=== PATIENT | male | born 2000 | race Two or more races ===

== ENCOUNTER → 2023-04-25 11:04 | Outpatient (CLI) | payer SELFPAY ==
--- NOTE | 2023-04-25 11:40 | ECG_ITS ---
APPROVED REPORT Exam: Resting ECG HR:67 bpm ECG Measurements Heart Rate 67 AXES ID 149 P 29 QRSd 109 QRS 27 QT 367 T 12 QTc 382 Conclusion SINUS RHYTHM NORMAL ECG UNCONFIRMED REPORT Electronically signed by : David Sheppard MD 04/26/2023 21:20:25
--- NOTE | 2023-04-25 11:44 | XR_ITS ---
FINAL REPORT CLINICAL HISTORY: left chest pain, dizziness FINDINGS: PA and lateral views of the chest are obtained. There is no prior exam for comparison. The cardiac and mediastinal silhouettes are within normal limits. The lungs are clear. There is no pleural effusion, pneumothorax, or acute osseous abnormality. IMPRESSION: No radiographic evidence of acute cardiac or pulmonary disease. Reviewed, Interpreted and Dictated by Gilda Stacy MD Transcribed by Isabella Epstein Authenticated and [facility]
[2023-04-25 12:04] LABS: Basophils % 0.5 % (0.1-2.0); Eosinophils # 0.2 K/mm3 (0.0-0.4); Eosinophils % 2.5 % (0.1-12.0); Hematocrit 47.1 % (42.0-52.0); Hemoglobin 15.3 g/dL (14.1-18.0); Lymphocytes % 28.2 % (10-50); Mean Corpuscular HGB Conc 32.5 g/dL (31.8-35.4); Mean Corpuscular Hemoglobin 27.2 pg (27.0-31.2); Mean Corpuscular Volume 83.9 fl (80-94); Mean Platelet Volume 10.8 fl (7.4-10.4); Monocytes # 0.3 K/mm3 (0.1-1.0); Neutrophils # 4.5 K/mm3 (1.8-7.8); Neutrophils % 64.8 % (37.0-80.0); Platelet Count 173 K/mm3 (142-424); Red Blood Count 5.61 M/mm3 (4.60-6.20)
[2023-04-25 12:13] LABS: Hemoglobin A1C 5.7 % (4.0-6.0)
[2023-04-25 12:47] LABS: Erythrocyte Sedimentation Rate 11 mm/hr (0-15)
[2023-04-25 13:15] LABS: Alanine Aminotransferase 66 U/L (12-78); Albumin Level 4.9 g/dl (3.5-5.0); Albumin/Globulin Ratio 1.8 (1.1-1.8); Alkaline Phosphatase 84 U/L (38-126); Anion Gap 12.9 mEq/L (5-15); Aspartate Amino Transferase 38 U/L (17-59); Bilirubin,Total 0.2 mg/dl (0.2-1.3); Blood Urea Nitrogen 18 mg/dl (9-20); Calcium 9.7 mg/dl (8.4-10.2); Carbon Dioxide 30 mmol/L (22.0-30.0); Chloride 104 mmol/L (98-107); Estimated Glomerular Filt Rate 139 ml/min (>60); GFR (African American) 168 ML/MIN (>60); Globulin 2.8 g/dL (1.3-3.2); Glucose 115 mg/dl (74-100); Potassium 4.9 mmoL/L (3.5-5.1); Sodium 142 mmol/L (136-145); Total Protein,Serum 7.7 g/dl (6.3-8.2)
[2023-04-25 13:20] LABS: C-Reactive Protein 21.1 mg/L (0-4)
[2023-04-25 13:46] LABS: Thyroid Stimulating Hormone 1.81 uIU/mL (0.465-4.68)
== END ==
PROVIDERS: PCP Nurse Practitioner; Visit Provider Nurse Practitioner
DX: R07.9 Chest pain, unspecified (principal); R42 Dizziness and giddiness
CPT/HCPCS: 36415; 71046; 80053; 83036; 84443; 85025; 85651; 86140; 93005; 93306